=== PATIENT | female | born 1990 | race Caucasian/White ===

== ENCOUNTER 2018-02-07 10:10 | Observation (INO) ==
[2018-02-07] MEDS ORDERED: Ondansetron 4 MG/2 ML VIAL IVP ONE ×2 (10:48→12:36)
[2018-02-07] MEDS ORDERED: 0.9 % Sodium Chloride 1,000 ML IVC ONE ×2 (10:48→15:35)
[2018-02-07] MEDS ORDERED: Ketorolac 30 MG/ML VIAL IVP ONE (10:48)
--- NOTE | 2018-02-07 10:48 | Emergency Department Note ---
Disposition Clinical Impression: LUQ abdominal pain Nausea and vomiting Qualifiers: Vomiting type: unspecified Vomiting Intractability: unspecified Qualified Code( s): R11.2 - Nausea with vomiting, unspecified Disposition: Admitted As Inpatient Condition: Fair Time of Disposition: 15:07 Abdominal Pain HPI - General Chief Complaint: ED Abdominal Pain Stated Complaint: LUQ abd pain/NV Time Seen by Provider: 02/07/18 10:19 Source: patient Mode of arrival: ambulatory Limitations: no limitations Nursing Notes Reviewed: Yes Vital Signs Reviewed: Yes - History of Present Illness HPI Narrative: 27yof no past medical history presents with left upper quadrant pain, she states she is not able to eat or drink for the last 4 days. The patient states that she is having 10 out of 10 pain in her left upper quadrant, she is having emesis as well. Patient denies fever chills. Patient states that she has no vaginal bleeding or discharge no new STD exposure. Patient states that she has no suprapubic pain, discharge flank pain or dysuria. Denies history of cholecystectomy, gastritis or GERD, Pt Subjective Complaint: abdominal pain Consistency: now resolved Location: LUQ Pain Severity: moderate Pain Scale: 9 Improves with: nothing Worsens with: nothing Associated symptoms: Reports: nausea, vomiting. Denies: diarrhea, fever, chills - Related Data Allergies Allergy/AdvReac Type Severity Reaction Status Date / Time No Known Allergies Allergy Verified 02/07/18 10:11 All systems ED: reviewed and negative except as stated. Review of Systems: As Per HPI Constitutional: Denies: fever, chills Eyes: Denies: eye pain ENT ED: Denies: ear pain Cardiovascular: Denies: chest pain Respiratory: Denies: cough, dyspnea Gastrointestinal: Reports: as per HPI, abdominal pain, nausea, vomiting Genitourinary: Denies: urgency Musculoskeletal: Denies: back pain Integumentary: Denies: rash Neurological: Denies: headache Psychiatric: Denies: anxiety Abdominal Pain PMH - Past Medical History Medical history: Reports: no medical history Female Surgical History: Reports: orthopedic, other, Tonsillectomy Psychiatric history: Reports: no psych history - Social History Smoking status: Never smoker Alcohol use: Reports: none Drug use: Reports: none Physical Exam Constitutional: alert and oriented, in NAD, vital signs reviewed and wnl HEENT: NCAT, sclera anicteric Neck: normal inspection, neck is supple, trachea midline Resp: normal chest inspection, CTA bilaterally, no resp distress CV: RRR, no m/g/r GI: normal inspection, Soft, moderate tenderness to palpation left upper quadrant. Just below the left ninth rib. no hepatosplenomegaly, BS x 4 quadrants, negative Banda's Sign, no tenderness at McBurney' point, Negative Rovsing's no rebound or guarding. Back: normal inspection, negative CVA bilaterally, no tenderness to palpation Skin: No rashes, skin warm, dry, intact Course Course Narrative: Patient's a mildly obese presents with left upper quadrant pain, the patient has a history of obesity, but she is not able to keep anything down for 4-5 days , we will try antiemetics and fluids, and reassess. Check a CT scan of abdomen and pelvis basic lab work urine urine - Reevaluation(s) Reevaluation #1: Urinary urgency negative, basic labs unremarkable however the patient did have some biliary sludge and CT scan, her left upper quadrant pain was persistent tried a by mouth challenge the patient after giving her antiemetics Zofran and Phenergan she was unable to keep even renny crackers and a little bit of water down, we talked to the hospitalist they wanted mild some gallbladder possible follow up with a HIDA scan agree to admit the patient this time for intractable nausea and vomiting Dr. Marleni cunha. Time: 16:22 Vital Signs Temperature 98 F 02/07/18 10:12 Pulse Rate 67 02/07/18 10:12 Respiratory Rate 20 02/07/18 10:12 Blood Pressure 131/83 02/07/18 10:12 O2 Sat by Pulse Oximetry 98 02/07/18 10:12 Temperature 98 F 02/07/18 11:00 Pulse Rate 87 02/07/18 14:51 Respiratory Rate 18 02/07/18 14:51 Blood Pressure 127/73 02/07/18 14:51 O2 Sat by Pulse Oximetry 98 02/07/18 14:51 Oxygen Delivery Oxygen Delivery Room Air Abdominal Pain - Differential Diagnosis Differential Diagnosis: Likely: abdominal pain non-specific, acute appendicitis , diverticulitis, diverticulosis - Medical Records Medical records reviewed: Yes I reviewed the patient's medical records. - Lab Data Lab results reviewed: Yes I reviewed the patient's lab results. Result diagrams: 02/07/18 10:54 02/07/18 10:54 Lab Results 02/07/18 02/07/18 02/07/18 Range/Units 10:54 10:54 11:29 WBC 7.9 (4.3-11.1) K/mcL RBC 4.48 (3.82-4.97) M/mcL Hgb 13.7 (11.5-15.4) g/dL Hct 39.1 (35.3-44.9) % MCV 87.3 (83.0-100.0) fL MCH 30.6 (28.0-33.3) pg MCHC 35.0 (31.6-35.5) g/dL RDW 12.6 (11.5-14.5) % Plt Count 108 L (140-400) K/mcL MPV 14.4 H (9.4-12.4) fL Immature Gran % 0.5 (0-4) % Seg Neutrophils % 72.7 % Lymphocytes % 17.6 % Monocytes % 7.4 % Eosinophils % 1.0 % Basophils % 0.8 % Neutrophils # 5.7 (1.6-8.9) K/mcL Lymphocytes # 1.4 (0.6-4.6) K/mcL Monocytes # 0.6 (0.0-1.3) K/mcL Eosinophils # 0.1 (0.0-0.6) K/mcL Basophils # 0.1 (0.0-0.2) K/mcL Sodium 137 (136-145) mEq/L Potassium 3.6 (3.5-5.1) mEq/L Chloride 105 (98-107) mEq/L Carbon Dioxide 24 (23-29) mEq/L BUN 9 (6-20) mg/dL Creatinine 0.79 (0.60-1.20) mg/dL Est GFR ( Amer) > 60 (> 60) Est GFR (Non-Af Amer) > 60 (> 60) BUN/Creatinine Ratio 11 (6-26) Glucose 106 H (70-105) mg/dL Calculated Osmolality 283 (280-300) Calcium 9.4 (8.6-10.3) mg/dL Total Bilirubin 0.9 (0.3-1.0) mg/dL Direct Bilirubin 0.2 (0.0-0.2) mg/dL Indirect Bilirubin 0.7 (0.0-1.2) mg/dL AST 18 (13-39) Units/L ALT 21 (7-52) Units/L Alkaline Phosphatase 62 (34-104) Units/L Serum Total Protein 6.9 (6.4-8.9) g/dL Albumin 4.3 (3.5-5.7) g/dL Globulin 2.6 (2.4-3.5) g/dL Albumin/Globulin Ratio 1.7 (1.1-2.2) Lipase 19 (11-82) Units/L Urine Color Yellow (Yellow) Urine Clarity Cloudy A (Clear) Urine pH 7.0 (5.0-8.0) pH Units Ur Specific [place] 1.012 (1.010-1.025) Urine Protein Negative (Neg-Trace) mg/dL Urine Glucose (UA) Normal (Normal) mg/dL Urine Ketones 40 H (Negative) mg/dL Urine Blood Negative (Negative) Urine Nitrite Negative (Negative) Urine Bilirubin Negative (Negative) Urine Urobilinogen Normal (Normal) mg/dL Ur Leukocyte Esterase Negative (Negative) Urine Microscopic RBC 0-3 (0-3) per hpf Urine Microscopic WBC 5-15 H (0-3) per hpf Ur Squamous Epith Cells Many H (None-Few) per lpf Urine Bacteria Few (None-Few) per hpf Hyaline Casts None Seen (None-Few) per lpf Ur Culture Indicated? NO (NO) Urine Test (Negative) 02/07/18 Range/Units 11:29 WBC (4.3-11.1) K/mcL RBC (3.82-4.97) M/mcL Hgb (11.5-15.4) g/dL Hct (35.3-44.9) % MCV (83.0-100.0) fL MCH (28.0-33.3) pg MCHC (31.6-35.5) g/dL RDW (11.5-14.5) % Plt Count (140-400) K/mcL MPV (9.4-12.4) fL Immature Gran % (0-4) % Seg Neutrophils % % Lymphocytes % % Monocytes % % Eosinophils % % Basophils % % Neutrophils # (1.6-8.9) K/mcL Lymphocytes # (0.6-4.6) K/mcL Monocytes # (0.0-1.3) K/mcL Eosinophils # (0.0-0.6) K/mcL Basophils # (0.0-0.2) K/mcL Sodium (136-145) mEq/L Potassium (3.5-5.1) mEq/L Chloride (98-107) mEq/L Carbon Dioxide (23-29) mEq/L BUN (6-20) mg/dL Creatinine (0.60-1.20) mg/dL Est GFR ( Amer) (> 60) Est GFR (Non-Af Amer) (> 60) BUN/Creatinine Ratio (6-26) Glucose (70-105) mg/dL Calculated Osmolality (280-300) Calcium (8.6-10.3) mg/dL Total Bilirubin (0.3-1.0) mg/dL Direct Bilirubin (0.0-0.2) mg/dL Indirect Bilirubin (0.0-1.2) mg/dL AST (13-39) Units/L ALT (7-52) Units/L Alkaline Phosphatase (34-104) Units/L Serum Total Protein (6.4-8.9) g/dL Albumin (3.5-5.7) g/dL Globulin (2.4-3.5) g/dL Albumin/Globulin Ratio (1.1-2.2) Lipase (11-82) Units/L Urine Color (Yellow) Urine Clarity (Clear) Urine pH (5.0-8.0) pH Units Ur Specific [place] (1.010-1.025) Urine Protein (Neg-Trace) mg/dL Urine Glucose (UA) (Normal) mg/dL Urine Ketones (Negative) mg/dL Urine Blood (Negative) Urine Nitrite (Negative) Urine Bilirubin (Negative) Urine Urobilinogen (Normal) mg/dL Ur Leukocyte Esterase (Negative) Urine Microscopic RBC (0-3) per hpf Urine Microscopic WBC (0-3) per hpf Ur Squamous Epith Cells (None-Few) per lpf Urine Bacteria (None-Few) per hpf Hyaline Casts (None-Few) per lpf Ur Culture Indicated? (NO) Urine Test Negative (Negative) - Radiology Data Radiology results reviewed: Yes I reviewed the patient's radiology results. Abdomen/Pelvis CT 02/07/18 10:49 IMPRESSION: 1. No acute intra-abdominal abnormality. 2. No acute intrapelvic abnormality. 3. Diverticulosis without obvious inflammation. 4. Probable biliary sludge within the gallbladder. 5. No urinary tract calcifications. D/ / Vic Espinoza MD / Vic Espinoza MD Interpreting Provider: Vic Espinoza MD
[2018-02-07 11:29] LABS: Basophils # 0.1 K/mcL (0.0-0.2); Basophils % 0.8 %; Eosinophils # 0.1 K/mcL (0.0-0.6); Hematocrit 39.1 % (35.3-44.9); Hemoglobin 13.7 g/dL (11.5-15.4); Immature Granulocytes % 0.5 % (0-4); Lymphocytes # 1.4 K/mcL (0.6-4.6); Lymphocytes % 17.6 %; Mean Corpuscular Hemoglobin 30.6 pg (28.0-33.3); Mean Corpuscular Volume 87.3 fL (83.0-100.0); Mean Platelet Volume 14.4 fL (9.4-12.4); Monocytes # 0.6 K/mcL (0.0-1.3); Monocytes % 7.4 %; Neutrophils # 5.7 K/mcL (1.6-8.9); Platelet Count 108 K/mcL (140-400); Red Blood Count 4.48 M/mcL (3.82-4.97); Red Cell Distribution Width 12.6 % (11.5-14.5); Segmented Neutrophils % 72.7 %
[2018-02-07 11:56] LABS: Bilirubin,Urine Negative (Negative); Blood,Urine Negative (Negative); Clarity,Urine Cloudy (Clear); Color,Urine Yellow (Yellow); Glucose,Urine (UA) Normal (Normal); Ketones,Urine 40 mg/dL (Negative); Leukocyte Esterase,Urine Negative (Negative); Nitrite,Urine Negative (Negative); Protein,Urine Negative (Neg-Trace); Specific Gravity,Urine 1.012 (1.010-1.025); Urobilinogen,Urine Normal (Normal)
[2018-02-07 12:01] LABS: Bacteria,Urine Few per hpf (None-Few); Hyaline Casts,Urine None Seen per lpf (None-Few); RBC,Urine 0-3 per hpf (0-3); Squamous Epithelial Cell,Urine Many per lpf (None-Few)
[2018-02-07] MEDS ORDERED: GI Cocktail 40 ML EACH PO ONE (12:36)
--- NOTE | 2018-02-07 12:37 | Emergency Department Note ---
Disposition Clinical Impression: LUQ abdominal pain, Nausea and vomiting Disposition: Home, Self-Care Condition: Fair Instructions: Acute Nausea and Vomiting (ED), Abdominal Pain (ED) Reasons to Return/Additional Instructions: 1. Follow up with your primary care physician in 1-2 weeks or at the [facility] if you have no provider, call for appt [phone]. 2. Take tylenol available over the counter for pain/fever every 6 hours according to label instructions. 3. Return to ED immediately if you develop worsening of your symptoms including shortness of breath, chest pain, high fevers >101 not controlled by over the counter medications (tylenol or motrin), dizziness, confusion, weakness, or intractable nausea and vomiting, or if ANY WORSENING OF YOUR CONDITION. 4. Drink plenty of fluids and get lots of rest. 5. Carafate for abdominal pain as well as Zofran for nausea. Encourage a bland diet no spicy foods Prescriptions: Ondansetron ODT [Zofran ODT] 4 mg SL Q8HR PRN #20 tab.rapdis PRN Reason: Nausea Sucralfate [Carafate] 1 gm PO Q6-8H PRN #400 ml PRN Reason: Abdominal Pain Referrals: [facility] [Outside] Forms: ED Satisfaction Letter, Work/School Release General Adult HPI - General Chief complaint: ED Abdominal Pain Stated complaint: LUQ abd pain/NV Time Seen by Provider: 02/07/18 10:19 - History of Present Illness Pain Scale: 9 - Related Data Home Medications Medication Instructions Recorded Confirmed Acetaminophen [Tylenol] 500 mg PO Q6HR PRN 04/13/15 04/13/15 Previous Rx's Medication Instructions Recorded Cyclobenzaprine [Flexeril] 10 mg PO TID PRN #12 tablet 04/13/15 HYDROcodone/Acet 5/325 mg [[place] 1 tab PO Q4HR PRN #6 tablet 04/13/15 5-325 mg] Ibuprofen [Motrin] 800 mg PO Q6-8H PRN #30 tablet 04/13/15 Acetaminophen/Butalbital/Caffe 1 each PO Q6HR #20 tablet 02/15/16 [Fioricet] Albuterol Sulfate [Proair Hfa] 1 puff IH Q4H PRN #1 inh 06/10/16 Loratadine [Claritin] 10 mg PO DAILY #30 tablet 06/10/16 Ondansetron ODT [Zofran ODT] 4 mg SL Q8HR #14 tab.rapdis 08/13/16 Ondansetron ODT [Zofran ODT] 4 mg SL Q8HR PRN #20 tab.rapdis 02/07/18 Sucralfate [Carafate] 1 gm PO Q6-8H PRN #400 ml 02/07/18 Allergies Allergy/AdvReac Type Severity Reaction Status Date / Time No Known Allergies Allergy Verified 02/07/18 10:11 Past Medical History - Past Medical History Medical history: Reports: no medical history Psychiatric history: Reports: no psych history - Social History Smoking Status: Never smoker Smokeless Tobacco Status: No Alcohol use: Reports: none Drug use: Reports: none Course Vital Signs Temperature 98 F 02/07/18 10:12 Pulse Rate 67 02/07/18 10:12 Respiratory Rate 20 02/07/18 10:12 Blood Pressure 131/83 02/07/18 10:12 O2 Sat by Pulse Oximetry 98 02/07/18 10:12 Temperature 98 F 02/07/18 11:00 Pulse Rate 87 02/07/18 14:51 Respiratory Rate 18 02/07/18 14:51 Blood Pressure 127/73 02/07/18 14:51 O2 Sat by Pulse Oximetry 98 02/07/18 14:51 Oxygen Delivery Oxygen Delivery Room Air Medical Decision Making - Lab Data Result diagrams: 02/07/18 10:54 02/07/18 10:54 Lab Results 02/07/18 02/07/18 02/07/18 Range/Units 10:54 10:54 11:29 WBC 7.9 (4.3-11.1) K/mcL RBC 4.48 (3.82-4.97) M/mcL Hgb 13.7 (11.5-15.4) g/dL Hct 39.1 (35.3-44.9) % MCV 87.3 (83.0-100.0) fL MCH 30.6 (28.0-33.3) pg MCHC 35.0 (31.6-35.5) g/dL RDW 12.6 (11.5-14.5) % Plt Count 108 L (140-400) K/mcL MPV 14.4 H (9.4-12.4) fL Immature Gran % 0.5 (0-4) % Seg Neutrophils % 72.7 % Lymphocytes % 17.6 % Monocytes % 7.4 % Eosinophils % 1.0 % Basophils % 0.8 % Neutrophils # 5.7 (1.6-8.9) K/mcL Lymphocytes # 1.4 (0.6-4.6) K/mcL Monocytes # 0.6 (0.0-1.3) K/mcL Eosinophils # 0.1 (0.0-0.6) K/mcL Basophils # 0.1 (0.0-0.2) K/mcL Sodium 137 (136-145) mEq/L Potassium 3.6 (3.5-5.1) mEq/L Chloride 105 (98-107) mEq/L Carbon Dioxide 24 (23-29) mEq/L BUN 9 (6-20) mg/dL Creatinine 0.79 (0.60-1.20) mg/dL Est GFR ( Amer) > 60 (> 60) Est GFR (Non-Af Amer) > 60 (> 60) BUN/Creatinine Ratio 11 (6-26) Glucose 106 H (70-105) mg/dL Calculated Osmolality 283 (280-300) Calcium 9.4 (8.6-10.3) mg/dL Total Bilirubin 0.9 (0.3-1.0) mg/dL Direct Bilirubin 0.2 (0.0-0.2) mg/dL Indirect Bilirubin 0.7 (0.0-1.2) mg/dL AST 18 (13-39) Units/L ALT 21 (7-52) Units/L Alkaline Phosphatase 62 (34-104) Units/L Serum Total Protein 6.9 (6.4-8.9) g/dL Albumin 4.3 (3.5-5.7) g/dL Globulin 2.6 (2.4-3.5) g/dL Albumin/Globulin Ratio 1.7 (1.1-2.2) Lipase 19 (11-82) Units/L Urine Color Yellow (Yellow) Urine Clarity Cloudy A (Clear) Urine pH 7.0 (5.0-8.0) pH Units Ur Specific [place] 1.012 (1.010-1.025) Urine Protein Negative (Neg-Trace) mg/dL Urine Glucose (UA) Normal (Normal) mg/dL Urine Ketones 40 H (Negative) mg/dL Urine Blood Negative (Negative) Urine Nitrite Negative (Negative) Urine Bilirubin Negative (Negative) Urine Urobilinogen Normal (Normal) mg/dL Ur Leukocyte Esterase Negative (Negative) Urine Microscopic RBC 0-3 (0-3) per hpf Urine Microscopic WBC 5-15 H (0-3) per hpf Ur Squamous Epith Cells Many H (None-Few) per lpf Urine Bacteria Few (None-Few) per hpf Hyaline Casts None Seen (None-Few) per lpf Ur Culture Indicated? NO (NO) Urine Test (Negative) 02/07/18 Range/Units 11:29 WBC (4.3-11.1) K/mcL RBC (3.82-4.97) M/mcL Hgb (11.5-15.4) g/dL Hct (35.3-44.9) % MCV (83.0-100.0) fL MCH (28.0-33.3) pg MCHC (31.6-35.5) g/dL RDW (11.5-14.5) % Plt Count (140-400) K/mcL MPV (9.4-12.4) fL Immature Gran % (0-4) % Seg Neutrophils % % Lymphocytes % % Monocytes % % Eosinophils % % Basophils % % Neutrophils # (1.6-8.9) K/mcL Lymphocytes # (0.6-4.6) K/mcL Monocytes # (0.0-1.3) K/mcL Eosinophils # (0.0-0.6) K/mcL Basophils # (0.0-0.2) K/mcL Sodium (136-145) mEq/L Potassium (3.5-5.1) mEq/L Chloride (98-107) mEq/L Carbon Dioxide (23-29) mEq/L BUN (6-20) mg/dL Creatinine (0.60-1.20) mg/dL Est GFR ( Amer) (> 60) Est GFR (Non-Af Amer) (> 60) BUN/Creatinine Ratio (6-26) Glucose (70-105) mg/dL Calculated Osmolality (280-300) Calcium (8.6-10.3) mg/dL Total Bilirubin (0.3-1.0) mg/dL Direct Bilirubin (0.0-0.2) mg/dL Indirect Bilirubin (0.0-1.2) mg/dL AST (13-39) Units/L ALT (7-52) Units/L Alkaline Phosphatase (34-104) Units/L Serum Total Protein (6.4-8.9) g/dL Albumin (3.5-5.7) g/dL Globulin (2.4-3.5) g/dL Albumin/Globulin Ratio (1.1-2.2) Lipase (11-82) Units/L Urine Color (Yellow) Urine Clarity (Clear) Urine pH (5.0-8.0) pH Units Ur Specific [place] (1.010-1.025) Urine Protein (Neg-Trace) mg/dL Urine Glucose (UA) (Normal) mg/dL Urine Ketones (Negative) mg/dL Urine Blood (Negative) Urine Nitrite (Negative) Urine Bilirubin (Negative) Urine Urobilinogen (Normal) mg/dL Ur Leukocyte Esterase (Negative) Urine Microscopic RBC (0-3) per hpf Urine Microscopic WBC (0-3) per hpf Ur Squamous Epith Cells (None-Few) per lpf Urine Bacteria (None-Few) per hpf Hyaline Casts (None-Few) per lpf Ur Culture Indicated? (NO) Urine Test Negative (Negative) Attestation Statement - Attestation Attestation: I examined this patient and my medical decision-making was reviewed with the Resident Physician. I agree with the documented findings, disposition and treatment plan as described except to the extent set forth below. Patient presents to the ED with a chief complaint of left upper abdominal pain. Onset a couple weeks ago. She describes it as a discomfort that hurts to move. On examination she has tenderness under the left ribs. I do not appreciate any palpable masses. Plan. Labs and CT scan. Imaging is unremarkable. Patient's vitals are stable and she appears comfortable. Will DC home with outpatient follow-up. Abdomen/Pelvis CT 02/07/18 10:49 IMPRESSION: 1. No acute intra-abdominal abnormality. 2. No acute intrapelvic abnormality. 3. Diverticulosis without obvious inflammation. 4. Probable biliary sludge within the gallbladder. 5. No urinary tract calcifications. D/ / Vic Espinoza MD / Vic Espinoza MD Interpreting Provider: Vic Espinoza MD
[2018-02-07 12:55] LABS: Alanine Aminotransferase 21 Units/L (7-52); Albumin 4.3 g/dL (3.5-5.7); Albumin/Globulin Ratio 1.7 (1.1-2.2); Alkaline Phosphatase 62 Units/L (34-104); Aspartate Amino Transferase 18 Units/L (13-39); BUN/Creatinine Ratio 11 (6-26); Bilirubin,Direct 0.2 mg/dL (0.0-0.2); Bilirubin,Indirect 0.7 mg/dL (0.0-1.2); Bilirubin,Total 0.9 mg/dL (0.3-1.0); Blood Urea Nitrogen 9 mg/dL (6-20); Calcium 9.4 mg/dL (8.6-10.3); Carbon Dioxide 24 mEq/L (23-29); Chloride 105 mEq/L (98-107); Globulin 2.6 g/dL (2.4-3.5); Glucose 106 mg/dL (70-105); Lipase 19 Units/L (11-82); Osmolality,Calculated 283 (280-300); Potassium 3.6 mEq/L (3.5-5.1); Sodium 137 mEq/L (136-145); Total Protein 6.9 g/dL (6.4-8.9); eGFR For African Americans > 60 (> 60); eGFR For Non-African Americans > 60 (> 60)
[2018-02-07] MEDS ORDERED: *HR* Promethazine 25 MG/ML VIAL IVP ONE (15:35)
--- NOTE | 2018-02-07 20:54 | Internal Med History&Physical ---
Date of Encounter: 02/07/18 Time of Encounter: 08:45 Internal Medicine - H&P: HPI Admitted From: Emergency Dept Plans for Post Hospital Care: Home (amenorrhea) History of present illness: Ms. Wilson is a 27 year old female with no significant PmHx, obese. Mother at bedside during my evaluation. Pt states she developed N/V about one week ago. Reports constant pain LUQ radiating to her left axilla, and back. Denies hx of gall stones that she is aware of. Denies fever or chills. Denies diarrhea. In ED WBC 7.9, hgb 13.7, hct 39.1, plt 108. Na 137, K 3.6, BUN 9, creatinine 0.79. Glucose 106 LFT's wnl. lipase 19. Urine analysis neg for UTI. CT abdomen and pelvis without contrast. no acute abnormality. Positive diverticulosis without inflammation. Abd US Findings suggestive of gall bladder sludge. No evidence of cholecystitis. Past Med Surg Social Fam HX - Past Medical History Medical history: no medical history Psychiatric history: no psych history - Past Surgical History Additional surgical history: left elbow surgery - Social History Smoking Status: Never smoker Smokeless Tobacco Status: No Alcohol use: none Drug use: none - Family History Mother Hx Family Cardiac Disorders: Yes (HLD) Hx Family Endocrine Disorder: Yes (DM) Internal Medicine - H&P: Meds 3 Allergy/AdvReac Type Severity Reaction Status Date / Time No Known Allergies Allergy Verified 02/07/18 10:11 All Systems PM: A 10-system review of systems was performed and is negative for pertinent findings except as documented above in the HPI. - Constitutional Vitals: Temp Pulse Resp BP Pulse Ox 97.8 F 61 16 123/83 100 02/07/18 20:29 02/07/18 20:29 02/07/18 20:29 02/07/18 20:29 02/07/18 20:29 General appearance: Present: A&O X 3, no acute distress - Head Head exam: Present: atraumatic, normocephalic - Eye Eye exam: Present: PERRL, conjuntiva pink, sclera anicteric Pupils: Present: PERRL - Neck Neck exam general surgery: Present: supple, trachea midline. Absent: lymphadenopathy - Respiratory Respiratory exam: Present: CTAB. Absent: accessory muscle use, rales, rhonchi, wheezes - Cardiovascular Cardiovascular exam: Present: RRR, +S1, +S2. Absent: diastolic murmur, gallop, rubs, systolic murmur - GI/Abdominal GI/Abdominal exam: Present: normal bowel sounds, soft, tenderness, no peritoneal signs. Absent: distended Additional comments: tender left upper quad pain - Extremities Exam Extremities exam: Present: warm, radial pulses palpable and symmetrical. Absent : calf tenderness, cyanotic, pedal edema - Neurological Exam Neurological exam: Present: CN II-XII intact, oriented X3, no focal deficits. Absent: pronater drift, facial droop, speech deficit - Skin Skin exam: Present: dry, intact Internal Med - H&P Results - Labs CBC & Chem 7: 02/07/18 10:54 02/07/18 10:54 - Assessment and plan (1) Nausea and vomiting Current Visit: Yes Status: Acute Assessment and plan: Will give IVF and Zofran prn. Qualifiers: Vomiting type: unspecified Vomiting Intractability: unspecified Qualified Code(s): R11.2 - Nausea with vomiting, unspecified (2) LUQ abdominal pain Current Visit: Yes Status: Acute Assessment and plan: Lipase 19. Abdominal US showing GB sludge. Will check NM gallbladder with drug. Will give IVF, pain control, and bowel rest. (3) Oligomenorrhea, unspecified Current Visit: Yes Status: Acute Assessment and plan: urine test negative. Will check TSH and FT4 levels. Follow up out pt with OBGYN for eval for possible PCOS. Qualifiers: Qualified Code(s): N91.5 - Oligomenorrhea, unspecified - Time Spent With Patient Total time spent is greater than 50% in coordination of care (as documented) at patient's floor/unit and/or counseling patient: 25 - 35 minutes
[2018-02-07] MEDS ORDERED: Naloxone 0.4 MG/ML INJ IVP PRN (21:04)
[2018-02-07] MEDS ORDERED: *HR* HYDROcodone/Acet 5/325 mg TABLET PO PRN (21:04)
[2018-02-07] MEDS ORDERED: Acetaminophen 325 MG TABLET PO PRN (21:04)
[2018-02-07] MEDS: 0.9 % Sodium Chloride 1,000 ML IVC SCH (21:31)
[2018-02-08 02:31] LABS: Chol/HDL Ratio 5.2 (0-4.9)
[2018-02-08] MEDS: *HR* Enoxaparin 40 MG/0.4 ML SYRINGE SQ SCH (06:06)
[2018-02-08 08:21] LABS: Thyroid Stimulating Hormone 0.655 mcIU/mL (0.340-5.600)
[2018-02-08 11:23] LABS: Basophils % 0.7 %; Eosinophils # 0.1 K/mcL (0.0-0.6); Eosinophils % 1.6 %; Hematocrit 39.9 % (35.3-44.9); Hemoglobin 13.2 g/dL (11.5-15.4); Immature Granulocytes % 0.5 % (0-4); Lymphocytes # 1.8 K/mcL (0.6-4.6); Lymphocytes % 28.8 %; Mean Corpuscular HGB Conc 33.1 g/dL (31.6-35.5); Mean Corpuscular Hemoglobin 29.4 pg (28.0-33.3); Mean Corpuscular Volume 88.9 fL (83.0-100.0); Mean Platelet Volume 14.2 fL (9.4-12.4); Monocytes # 0.4 K/mcL (0.0-1.3); Monocytes % 6.7 %; Neutrophils # 3.8 K/mcL (1.6-8.9); Nucleated Red Blood Cells 0.3 /100 WBC (0); Platelet Count 112 K/mcL (140-400); Red Blood Count 4.49 M/mcL (3.82-4.97); Red Cell Distribution Width 12.8 % (11.5-14.5); Segmented Neutrophils % 61.7 %
[2018-02-08 13:18] LABS: BUN/Creatinine Ratio 9 (6-26); Blood Urea Nitrogen 6 mg/dL (6-20); Calcium 8.9 mg/dL (8.6-10.3); Carbon Dioxide 26 mEq/L (23-29); Chloride 108 mEq/L (98-107); Glucose 120 mg/dL (70-105); Osmolality,Calculated 287 (280-300); Potassium 3.6 mEq/L (3.5-5.1); Sodium 139 mEq/L (136-145); eGFR For African Americans > 60 (> 60); eGFR For Non-African Americans > 60 (> 60)
--- NOTE | 2018-02-08 15:55 | Internal Med Progress Note ---
Date of Encounter: 02/08/18 Time of Encounter: 15:53 - Assessment and plan (1) LUQ abdominal pain Current Visit: Yes Status: Acute Assessment and plan: Patient had been experiencing left upper quadrant pain with nausea and vomiting over the past 4 days. She has not been able to eat or drink. She denies any stools has not been passing gas. She did undergo CT of her abdomen which did show some diverticulosis but no diverticulitis probable biliary sludge within the gallbladder gallbladder ultrasound suggestive of gallbladder sludge no evidence of cholecystitis Underwent a HIDA scan with no convincing evidence of acute or chronic cholecystitis Hepatic panel within normal limits Continue with clear liquid diet will make nothing by mouth after midnight Continue with IV fluids Obtain stool sample We will consult GI (2) Nausea and vomiting Current Visit: Yes Status: Acute Assessment and plan: Continue with Zofran IV fluids Clear liquids and advance as tolerated Consult GI Qualifiers: Vomiting type: unspecified Vomiting Intractability: unspecified Qualified Code(s): R11.2 - Nausea with vomiting, unspecified (3) DVT prophylaxis Current Visit: Yes Status: Acute Assessment and plan: Lovenox subcutaneous - Time Spent With Patient Total time spent is greater than 50% in coordination of care (as documented) at patient's floor/unit and/or counseling patient: - Subjective Interval history: Patient was seen and examined at bedside. Patient continues to complain of left upper quadrant pain is tender to touch describes it as "a knot as if she has something in there"at times the pain is sharp most the time it is and I will. It is not aggravated by eating or defecating. She continues to experience nausea attempted to eat solid food and was unable to keep down. She did have some diarrhea today which she has not been experiencing. Denies any fevers or chills melena medications or hematemesis. - Constitutional Vitals: Temp Pulse Resp BP Pulse Ox 98.1 F 76 18 119/80 98 02/08/18 15:18 02/08/18 15:18 02/08/18 15:18 02/08/18 15:18 02/08/18 15:18 General appearance: Present: A&O X 3, no acute distress - Head Head exam: Present: atraumatic, normocephalic - Eye Eye exam: Present: PERRL, conjuntiva pink, sclera anicteric Pupils: Present: PERRL - Neck Neck exam general surgery: Present: supple, trachea midline. Absent: lymphadenopathy - Respiratory Respiratory exam: Present: CTAB. Absent: accessory muscle use, rales, rhonchi, wheezes - Cardiovascular Cardiovascular exam: Present: RRR, +S1, +S2. Absent: diastolic murmur, gallop, rubs, systolic murmur - GI/Abdominal GI/Abdominal exam: Present: normal bowel sounds, soft, tenderness, no peritoneal signs. Absent: distended - Extremities Exam Extremities exam: Present: warm, radial pulses palpable and symmetrical. Absent : calf tenderness, cyanotic, pedal edema - Neurological Exam Neurological exam: Present: CN II-XII intact, oriented X3, no focal deficits. Absent: pronater drift, facial droop, speech deficit - Skin Skin exam: Present: dry, intact Internal Medicine: Result - Labs CBC & Chem 7: 02/08/18 10:37 02/08/18 12:21 Labs: Short CBC 02/08/18 Range/Units 10:37 WBC 6.1 (4.3-11.1) K/mcL Hgb 13.2 (11.5-15.4) g/dL Hct 39.9 (35.3-44.9) % Plt Count 112 L (140-400) K/mcL Neutrophils # 3.8 (1.6-8.9) K/mcL BMP 02/08/18 12:21 Sodium 139 Potassium 3.6 Chloride 108 H Carbon Dioxide 26 BUN 6 Creatinine 0.70 Glucose 120 H Calcium 8.9 - Impressions Impressions Liver Scan Nuclear Medicine 02/08/18 07:06 IMPRESSION: No convincing scintigraphic evidence of acute or chronic cholecystitis. D/ / Wes Rebolledo MD / Wes Rebolledo MD Interpreting Provider: Wes Rebolledo MD Consult Discharge Plan - Plan Referrals: NONE,PCP [Primary Care Provider] -
[2018-02-08] MEDS ORDERED: 0.9 % Sodium Chloride 1,000 ML IVC SCH ×2 (17:45→23:59)
[2018-02-08] MEDS: 0.9 % Sodium Chloride 1,000 ML IVC SCH (23:10)
[2018-02-09] MEDS: *HR* Enoxaparin 40 MG/0.4 ML SYRINGE SQ SCH (05:10)
[2018-02-09 07:25] LABS: Basophils % 0.7 %; Hematocrit 37.3 % (35.3-44.9); Lymphocytes % 29.3 %; Mean Platelet Volume 14.9 fL (9.4-12.4)
[2018-02-09 07:27] LABS: Basophils # 0.1 K/mcL (0.0-0.2); Eosinophils # 0.3 K/mcL (0.0-0.6); Eosinophils % 3.4 %; Hemoglobin 12.3 g/dL (11.5-15.4); Immature Granulocytes % 0.3 % (0-4); Immature Platelets 26.1 % (1.1-6.1); Lymphocytes # 2.2 K/mcL (0.6-4.6); Mean Corpuscular Hemoglobin 29.9 pg (28.0-33.3); Mean Corpuscular Volume 90.5 fL (83.0-100.0); Monocytes # 0.5 K/mcL (0.0-1.3); Monocytes % 7.3 %; Platelet Count 103 K/mcL (140-400); Red Blood Count 4.12 M/mcL (3.82-4.97); Red Cell Distribution Width 12.9 % (11.5-14.5)
[2018-02-09 07:30] LABS: Neutrophils # 4.4 K/mcL (1.6-8.9)
[2018-02-09] MEDS ORDERED: *HR* FentaNYL (PF) 100 MCG/2 ML VIAL IVP ONE (07:32)
[2018-02-09] MEDS ORDERED: Tetracaine/Benzocaine/Butamben 200MG/SPRAY (100SPY/BOT) MM ONE (07:32)
[2018-02-09] MEDS ORDERED: Simethicone 40 MG/0.6 ML MLS IR ONE (07:32)
[2018-02-09] MEDS ORDERED: *HR* Midazolam HCl 2 MG/2 ML VIAL IVP ONE (07:32)
--- NOTE | 2018-02-09 07:32 | Pre-Sedation Evaluation ---
Pre-sedation evaluation - Pre-sedation checklist Date of procedure: 02/09/18 Procedure: EGD Recent Vitals: Last Vital Signs Temp 97.9 F 02/09/18 07:30 Pulse 68 02/09/18 07:30 Resp 18 02/09/18 07:30 BP 154/83 02/09/18 07:30 Pulse Ox 100 02/09/18 07:30 H&P (including ROS) documented in medical record: Yes Previous reaction to sedatives/anesthetics: No Dietary Status: NPO after Midnight Dentition: No loose teeth or bridges ASA Classification *see protocol: CLASS II-Mild systemic disease Plan of Care: Pt appropriate candidate for procedure/moderate/conscious sedation , Risks/benefits of procedure/sedation discussed w/ patient/family
[2018-02-09 07:37] LABS: BUN/Creatinine Ratio 8 (6-26); Blood Urea Nitrogen 6 mg/dL (6-20); Calcium 8.7 mg/dL (8.6-10.3); Carbon Dioxide 26 mEq/L (23-29); Chloride 108 mEq/L (98-107); Glucose 95 mg/dL (70-105); Osmolality,Calculated 287 (280-300); Potassium 3.5 mEq/L (3.5-5.1); Sodium 140 mEq/L (136-145); eGFR For African Americans > 60 (> 60); eGFR For Non-African Americans > 60 (> 60)
[2018-02-09] MEDS ORDERED: *HR* Midazolam HCl 5 MG/5 ML VIAL IVP ONE (08:05)
[2018-02-09] MEDS ORDERED: *HR* FentaNYL (PF) 100 MCG/2 ML VIAL ONE (08:06)
--- NOTE | 2018-02-09 11:45 | Gastroenterology Consult Note ---
<Johann Mace - Last Filed: 02/09/18 11:43> Date of Encounter: 02/09/18 Time of Encounter: 10:20 - Assessment and plan (1) LUQ abdominal pain Current Visit: Yes Status: Acute Assessment and plan: CT A/P with no acute abnormality, probable biliary sludge in gallbladder. GB US suggestive of gallbladder sludge but no cholecystitis. HIDA scan with EF of 77% . Plan for EGD today to r/o esophagitis, gastritis, duodenitis, PUD, MW tear, or AVM. Start PPI. Could be due to costochondritis. - Time Spent With Patient Total time spent is greater than 50% in coordination of care (as documented) at patient's floor/unit and/or counseling patient: GI History of Present Illness - Data of Consult Patient: new to practice Consult date: 02/09/18 Requesting Physician: America Muller - Consult Narrative Reason for consult: LUQ pain History of present illness: Ms. Wilson is a 27 year old female with no significant PMHx presents with LUQ pain, nausea, and vomiting that started 4 days prior to admission. She denies history of gallstones. She denies fever, chills, melena, hematochezia, or hematemesis. CT A/P with no acute abnormality, probable biliary sludge in gallbladder. GB US suggestive of gallbladder sludge but no cholecystitis. HIDA scan with EF of 77%. She complains of pain with deep breaths. Procedures: None NSAIDs: None Anticoagulation: None Past Med Surg Social Fam HX - Past Medical History Medical history: no medical history Psychiatric history: no psych history - Past Surgical History Additional surgical history: left elbow surgery - Social History Smoking Status: Never smoker Smokeless Tobacco Status: No Alcohol use: none Drug use: none - Family History Mother Hx Family Cardiac Disorders: Yes (HLD) Hx Family Endocrine Disorder: Yes (DM) - Gastrointestinal Gastrointestinal: Present: as per HPI - Constitutional Constitutional: as per HPI - EENT Eyes: as per HPI Ears: Present: as per HPI Nose, mouth and throat: Present: as per HPI - Cardiovascular Cardiovascular ROS: Present: as per HPI - Respiratory Respiratory IM: Present: as per HPI - Genitourinary Genitourinary: Absent: change in color, Urinary frequency - Neurological ROS Neurological GI: Absent: as per HPI - Hematologic/Lymphatic Hematologic/Lymphatic pediatric: Absent: as per HPI - Musculoskeletal Musculoskeletal ROS GI: Absent: as per HPI - Integumentary Integumentary GI: Absent: as per HPI - Psychiatric ROS Psychiatric GI: Absent: as per HPI - Endocrine Endocrine IM: Absent: as per HPI - Constitutional Vitals: Temp Pulse Resp BP Pulse Ox 97.6 F 52 18 101/58 100 02/09/18 10:44 02/09/18 10:44 02/09/18 10:44 02/09/18 10:44 02/09/18 10:44 General appearance: Present: cooperative, A&O X 3, no acute distress, answers questions appropriately - Head Head exam: Present: atraumatic, normocephalic - Eye Eye exam: Present: normal appearance, sclera anicteric - ENT ENT exam: Present: mucous membranes dry - Neck Neck exam general surgery: Present: normal inspection, trachea midline - Respiratory Respiratory exam: Present: CTAB. Absent: rales, rhonchi - Cardiovascular Cardiovascular exam: Present: RRR, +S1, +S2 - GI/Abdominal GI/Abdominal exam: Present: normal bowel sounds, soft, tenderness (LUQ/left lower chest), no peritoneal signs. Absent: distended, firm, guarding - Rectal Rectal exam: Present: deferred - Extremities Exam Extremities exam: Present: warm - Neurological Exam Neurological exam: Present: no focal deficits - Psychiatric Psychiatric exam: Present: normal affect, normal mood - Skin Skin exam: Present: dry, intact, normal color, warm Results - Labs CBC & Chem 7: 02/09/18 06:06 02/09/18 06:06 Labs: Last Result Calcium 8.7 mg/dL (8.6-10.3) 02/09/18 06:06 Triglycerides 125 mg/dL (< 150) 02/08/18 01:06 Entire Visit Hgb 12.3 g/dL (11.5-15.4) 02/09/18 06:06 Hct 37.3 % (35.3-44.9) 02/09/18 06:06 Total Bilirubin 0.9 mg/dL (0.3-1.0) 02/07/18 10:54 AST 18 Units/L (13-39) 02/07/18 10:54 ALT 21 Units/L (7-52) 02/07/18 10:54 Lipase 19 Units/L (11-82) 02/07/18 10:54 Consult Discharge Plan - Plan Referrals: NONE,PCP [Primary Care Provider] - <YaniraTrang - Last Filed: 02/09/18 12:54> Date of Encounter: 02/09/18 Time of Encounter: 07:30 - Time Spent With Patient Total time spent is greater than 50% in coordination of care (as documented) at patient's floor/unit and/or counseling patient: GI History of Present Illness - Data of Consult Requesting Physician: America Muller - Consult Narrative History of present illness: Ms. Wilson is a 27 year old female - Constitutional Vitals: Temp Pulse Resp BP Pulse Ox 97.6 F 52 18 101/58 100 02/09/18 10:44 02/09/18 10:44 02/09/18 10:44 02/09/18 10:44 02/09/18 10:44 Results - Labs CBC & Chem 7: 02/09/18 06:06 02/09/18 06:06 Labs: Last Result Calcium 8.7 mg/dL (8.6-10.3) 02/09/18 06:06 Triglycerides 125 mg/dL (< 150) 02/08/18 01:06 Entire Visit Hgb 12.3 g/dL (11.5-15.4) 02/09/18 06:06 Hct 37.3 % (35.3-44.9) 02/09/18 06:06 Total Bilirubin 0.9 mg/dL (0.3-1.0) 02/07/18 10:54 AST 18 Units/L (13-39) 02/07/18 10:54 ALT 21 Units/L (7-52) 02/07/18 10:54 Lipase 19 Units/L (11-82) 02/07/18 10:54 - Attending Attestation I have personally performed a face to face evaluation on this patient. I have reviewed and agree with the care plan. History and Exam by me shows: He should not seen. Patient complaining of left upper quadrant pain on examination she has tenderness in the lower rib cage area concerning for costochondritis but pain could be coming from the stomach also. Rec; EGD to rule out upper GI causes for her pain.
[2018-02-09] MEDS: Ondansetron 4 MG/2 ML VIAL IVP PRN ×2 (13:10→20:00)
[2018-02-09] MEDS: *HR* OxyCODONE Immed Rel 5 MG TABLET PO PRN (20:00)
--- NOTE | 2018-02-09 20:10 | Internal Med Progress Note ---
Date of Encounter: 02/09/18 Time of Encounter: 16:00 - Assessment and plan (1) LUQ abdominal pain Current Visit: Yes Status: Acute Assessment and plan: Patient had been experiencing left upper quadrant pain with nausea and vomiting over the past 4 days. She has not been able to eat or drink. She denies any stools has not been passing gas. She did undergo CT of her abdomen which did show some diverticulosis but no diverticulitis probable biliary sludge within the gallbladder gallbladder ultrasound suggestive of gallbladder sludge no evidence of cholecystitis Underwent a HIDA scan with no convincing evidence of acute or chronic cholecystitis Hepatic panel within normal limits GI was consult it. Patient underwent EGD which did show gastritis GI recommending PPI daily Patient tolerating clear liquids unable to tolerate solid foods at this time we will keep her overnight and discharge in a.m. (2) Nausea and vomiting Current Visit: Yes Status: Acute Assessment and plan: Continue with Zofran Clear liquids and advance as tolerated Qualifiers: Vomiting type: unspecified Vomiting Intractability: unspecified Qualified Code(s): R11.2 - Nausea with vomiting, unspecified (3) DVT prophylaxis Current Visit: Yes Status: Acute Assessment and plan: Lovenox subcutaneous - Time Spent With Patient Total time spent is greater than 50% in coordination of care (as documented) at patient's floor/unit and/or counseling patient: - Subjective Interval history: Patient was seen and examined at bedside. Patient underwent EGD today tolerated procedure well . EGD did show gastritis recommending a PPI daily per GI. I did discuss this with the patient who verbalized understanding. Patient has tolerated clear liquids however she continues to feel nausea and unable to keep down solids at this time. We will monitor overnight and discharge in the a.m. - Constitutional Vitals: Temp Pulse Resp BP Pulse Ox 98 F 66 16 128/80 99 02/09/18 18:31 02/09/18 18:31 02/09/18 18:31 02/09/18 18:31 02/09/18 18:31 General appearance: Present: A&O X 3, no acute distress - Head Head exam: Present: atraumatic, normocephalic - Eye Eye exam: Present: PERRL, conjuntiva pink, sclera anicteric Pupils: Present: PERRL - Neck Neck exam general surgery: Present: supple, trachea midline. Absent: lymphadenopathy - Respiratory Respiratory exam: Present: CTAB. Absent: accessory muscle use, rales, rhonchi, wheezes - Cardiovascular Cardiovascular exam: Present: RRR, +S1, +S2. Absent: diastolic murmur, gallop, rubs, systolic murmur - GI/Abdominal GI/Abdominal exam: Present: normal bowel sounds, soft, no peritoneal signs. Absent: distended, tenderness - Extremities Exam Extremities exam: Present: warm, radial pulses palpable and symmetrical. Absent : calf tenderness, cyanotic, pedal edema - Neurological Exam Neurological exam: Present: CN II-XII intact, oriented X3, no focal deficits. Absent: pronater drift, facial droop, speech deficit - Skin Skin exam: Present: dry, intact Internal Medicine: Result - Labs CBC & Chem 7: 02/09/18 06:06 02/09/18 06:06 Labs: Short CBC 02/09/18 Range/Units 06:06 WBC 7.4 (4.3-11.1) K/mcL Hgb 12.3 (11.5-15.4) g/dL Hct 37.3 (35.3-44.9) % Plt Count 103 L (140-400) K/mcL Neutrophils # 4.4 (1.6-8.9) K/mcL BMP 02/09/18 06:06 Sodium 140 Potassium 3.5 Chloride 108 H Carbon Dioxide 26 BUN 6 Creatinine 0.73 Glucose 95 Calcium 8.7 Consult Discharge Plan - Plan Referrals: NONE,PCP [Primary Care Provider] -
[2018-02-10] MEDS: Ondansetron 4 MG/2 ML VIAL IVP PRN ×3 (02:32→13:54)
[2018-02-10] MEDS: *HR* OxyCODONE Immed Rel 5 MG TABLET PO PRN (02:33)
[2018-02-10] MEDS: *HR* Enoxaparin 40 MG/0.4 ML SYRINGE SQ SCH (06:13)
[2018-02-10 08:26] VITALS: BP 148/82
--- NOTE | 2018-02-10 11:25 | Discharge Summary ---
- NOTES TO OUTPATIENT PROVIDER Notes to Outpatient Provider: Patient did undergo an EGD which did show gastritis without bleeding recommending PPI daily Orders not resulted at time of discharge: Pending orders 02/09/18 07:44 Surgical Pathology [PTH] Routine Date of Encounter: 02/10/18 Time of Encounter: 11:25 - Discharge Diagnosis (1) LUQ abdominal pain Priority: Primary Status: Acute (2) Nausea and vomiting Priority: Secondary Status: Acute Qualifiers: Vomiting type: unspecified Vomiting Intractability: unspecified Qualified Code(s): R11.2 - Nausea with vomiting, unspecified Hospital course: Ms. Wilson is a 27 year old female with no past medical history. He presented to the emergency department after dispensing nausea and vomiting for approximately 1 week also complains of constant pain and left upper quadrant radiating to her left neck failure into her back. Lab work was unremarkable LFTs within normal limits urinalysis negative for UTI CT abdomen and pelvis without contrast with no acute abnormality positive for diverticulosis but no inflammation. Abdominal ultrasound did suggest gallbladder sludge but no evidence of cholecystitis. She did undergo a HIDA scan which had no convincing evidence of acute or chronic cholecystitis. Patient continued to complain of nausea however did not note any vomiting she did have one bout of diarrhea during admission. Continue to complain of left upper quadrant pain. Did consult GI patient did undergo EGD which did show some gastritis. Patient was initiated on PPI and was given clear liquid diet. Has some nausea but no vomiting or diarrhea. She is hemodynamically stable advised patient to continue with PPI will give prescription for Zofran for nausea advised patient to follow-up with primary care physician. Patient does not have a primary care we will set her up with residency clinic for follow-up. Patient verbalized understanding of discharge instructions and she is ready for discharge. - Time Spent with Patient Total time spent providing and/or coordinating discharge services: - Discharge Medications Prescriptions: Ondansetron ODT [Zofran ODT] 4 mg SL Q6HR PRN #8 tab.rapdis PRN Reason: Nausea And Vomiting Omeprazole [PriLOSEC] 20 mg PO DAILY@0630 #30 capsule. Home Medications: Omeprazole [PriLOSEC] 20 mg PO DAILY@0630 #30 capsule. 02/10/18 [Rx] Ondansetron ODT [Zofran ODT] 4 mg SL Q6HR PRN #8 tab.rapdis 02/10/18 [Rx] Allergies/Adverse Reactions: 3 Allergy/AdvReac Type Severity Reaction Status Date / Time No Known Allergies Allergy Verified 02/07/18 10:11 Date of admission: 02/07/18 15:59 Primary care physician: PCP NONE Consults: 02/08/18 16:42 Consult to Gastroenterology [CONS] Routine Consulting Provider: Gastroenterology [facility] Reason for Consult: L upper quadrant pain N/V Time Notified: 16:43 Call Completed: Yes Discharging clinician: Parul Joshi Anticipated date of discharge: 02/10/18 - Constitutional Vitals: Temp Pulse Resp BP Pulse Ox 98.2 F 55 16 148/82 95 02/10/18 08:25 02/10/18 08:25 02/10/18 08:25 02/10/18 08:25 02/10/18 08:25 General appearance: Present: A&O X 3, no acute distress - Head Head exam: Present: atraumatic, normocephalic - Eye Eye exam: Present: PERRL, conjuntiva pink, sclera anicteric Pupils: Present: PERRL - Neck Neck exam general surgery: Present: supple, trachea midline. Absent: lymphadenopathy - Respiratory Respiratory exam: Present: CTAB. Absent: accessory muscle use, rales, rhonchi, wheezes - Cardiovascular Cardiovascular exam: Present: RRR, +S1, +S2. Absent: diastolic murmur, gallop, rubs, systolic murmur - GI/Abdominal GI/Abdominal exam: Present: normal bowel sounds, soft, no peritoneal signs. Absent: distended, tenderness - Extremities Exam Extremities exam: Present: warm, radial pulses palpable and symmetrical. Absent : calf tenderness, cyanotic, pedal edema - Neurological Exam Neurological exam: Present: CN II-XII intact, oriented X3, no focal deficits. Absent: pronater drift, facial droop, speech deficit - Skin Skin exam: Present: dry, intact - Patient Status Disposition: Home, Self-Care Condition: Fair Functional capacity at discharge: independent ambulation Overall status at discharge: patient is back to baseline - Discharge Instructions Follow Up With: NONE,PCP [Primary Care Provider] - - Diet and Activity Activity: increase activity as tolerated Diet: advance to your usual diet
== END 2018-02-10 15:07 | disposition home or self-care (01) ==
LOC: EMEROO 10:10 → 3BNU 10:10
PROVIDERS: ADMIT Internal Medicine; ATTEND Internal Medicine
PROC: ENDOEBX (2018-02-09 15:30)